=== PATIENT | female | born 1975 | race Caucasian/White ===

== ENCOUNTER → 2017-03-11 | Outpatient (CLI) | payer BC, OTHER ==
[~2017-03-11] MED LIST: CIPR500T78 PO; DULA1.5P SQ; FOLI0.8T PO; HYDR1TAB8 OP; METFOR850T PO; MULT-633 PO; PRAV10TA PO; SERT25TA PO; TAMS0.4C9 PO
--- NOTE | 2017-03-11 09:24 | Diagnostic Imaging Report ---
INDICATION: Routine screening. No prior mammograms are available for comparison. This is a baseline study. The current study was also evaluated with a Computer Aided Detection (CAD) system. Both breast show marked parenchymal heterogeneity and increased density, limiting the sensitivity of mammography. No dominant mass or malignant appearing microcalcifications are seen. Axillae are unremarkable. IMPRESSION: BI-RADS category one No mammographic features suspicious for malignancy are identified. ACR BI-RADS Category 1: Negative. Result letter will be mailed to the patient. Note: At least 10% of breast cancer is not imaged by mammography. Dictated by: Dictated on workstation # [id number]
== END ==
LOC: RAD 07:39
PROVIDERS: ATTEND Obstetrics & Gynecology
DX: Z12.31 Encounter for screening mammogram for malignant neoplasm of breast (principal)
CPT/HCPCS: 77067

== ENCOUNTER → 2020-06-06 | Outpatient (CLI) | payer BC, OTHER ==
--- NOTE | 2020-06-06 14:54 | Diagnostic Imaging Report ---
INDICATION: Routine screening. Comparison is made with prior mammogram from 03/11/2017. 2-D and 3-D bilateral screening mammography was performed with CAD. Both breasts remain heterogeneously dense, limiting the sensitivity of mammography. The parenchymal pattern is stable. No mass or malignant appearing microcalcifications are seen. Axillae are unremarkable. IMPRESSION: BI-RADS Category 1 No mammographic features suspicious for malignancy are identified. ACR BI-RADS Category 1: Negative. Result letter will be mailed to the patient. Note: At least 10% of breast cancer is not imaged by mammography. Dictated by: Dictated on workstation # [id number]
== END ==
LOC: RAD 12:45
PROVIDERS: ATTEND Nurse Practitioner Family
DX: Z12.31 Encounter for screening mammogram for malignant neoplasm of breast (principal)
CPT/HCPCS: 77063; 77067

== ENCOUNTER 2020-06-20 08:11 | Emergency (ER) | payer BC ==
[~2020-06-20] VITALS: Ht 162 cm; Wt 63.0 kg
--- NOTE | 2020-06-20 08:33 | ED Cardiac General ---
History of Present Illness General Stated Complaint: RAPID HR Source: patient, spouse Exam Limitations: no limitations History of Present Illness Date Seen by Provider: June 20, 2020 Time Seen by Provider: 08:10 Initial Comments The patient presents to the ER by private conveyance with her spouse and chief complaint that she has been feeling weak tired at times more short of breath with exertion than usual for the past couple days and this morning she says she felt weak like she was going to pass out in the shower but did not. She says her Fitbit told her she did 80 minutes of exercise yesterday and she says all she was doing was sitting at her desk. She checked and her heart rate has been running in the 1 20-1 40 range. It was about 120 when she was at work this morning so her boss insisted she get checked out. She follows with Dr. Diane for primary care in [place]. She does not have a history of dysrhythmias or heart problems. She is not having any chest pain or nausea. No sweats, fever, cough, shortness of air, diarrhea. She does have occasional constipation. She is not on any supplements, diet pills or other medicines however she did start Jardiance the beginning of April and has lost several pounds with it. She has a history of type 2 diabetes not on insulin. She denies smoking or tobacco products. She has an occasional jerrica. She denies recreational drugs. She denies being dehydrated recently for any reason. Allergies and Home Medications Allergies Coded Allergies: Cephalexin Monohydrate (Unverified Allergy, Intermediate, SOA, SEVERE RASH, 09/26/10) rofecoxib (Unverified Allergy, Mild, RASH, 09/26/10) Uncoded Allergies: IV CONTRAST (Allergy, Intermediate, RASH, 09/26/10) Patient Home Medication List Home Medication List Reviewed: Yes Review of Systems Review of Systems Constitutional: No chills, No diaphoresis EENTM: No Blurred Vision, No Double Vision Respiratory: Denies Cough, Denies Orthopnea Cardiovascular: Denies Chest Pain, Denies Edema Gastrointestinal: Denies Abdomen Distended, Denies Abdominal Pain Genitourinary: Denies Burning, Denies Discharge, Denies Drainage Musculoskeletal: No back pain, No joint pain Psychiatric/Neurological: Denies Anxiety, Denies Depressed All Other Systems Reviewed Negative Unless Noted: Yes Past Cmpuekg-Lvdeqn-Frjaxo Hx Patient Social History Alcohol Use: Occasionally Uses Drug of Choice: Denies Smoking Status: Never a Smoker Past Medical History High Cholesterol Reproductive Disorders: No Diabetes, Non-Insulin dep Physical Exam Vital Signs Vital Signs - First Documented 06/20/20 08:11 Temp 37.0 Pulse 112 Resp 15 B/P (MAP) 118/84 (95) Pulse Ox 97 Capillary Refill : Height, Weight, BMI Height: 5'8" Weight: 140lbs. oz. [id number]; BMI Method:Stated General Appearance: No Apparent Distress, WD/WN HEENT: PERRL/EOMI, Pharynx Normal, Moist Mucous Membranes Neck: Full Range of Motion, Normal Inspection, Non Tender, Supple; No Thyromegaly Respiratory: Lungs Clear, Normal Breath Sounds, No Accessory Muscle Use, No Respiratory Distress Cardiovascular: Regular Rate, Rhythm, No Edema, Normal Peripheral Pulses Gastrointestinal: Normal Bowel Sounds, No Organomegaly Extremity: Normal Capillary Refill, Normal Inspection, No Pedal Edema Neurologic/Psychiatric: Alert, Oriented x3, No Motor/Sensory Deficits, Normal Mood/Affect Skin: Normal Color, Warm/Dry Progress/Results/Core Measures Results/Orders Lab Results Laboratory Tests Test 06/20/20 08:25 06/20/20 08:51 Range/Units White Blood Count 8.1 4.3-11.0 10^3/uL Red Blood Count 4.82 3.80-5.11 10^6/uL Hemoglobin 13.7 11.5-16.0 g/dL Hematocrit 43 35-52 % Mean Corpuscular Volume 89 80-99 fL Mean Corpuscular Hemoglobin 28 25-34 pg Mean Corpuscular Hemoglobin Concent 32 32-36 g/dL Red Cell Distribution Width 12.8 10.0-14.5 % Platelet Count 308 130-400 10^3/uL Mean Platelet Volume 9.2 9.0-12.2 fL Immature Granulocyte % (Auto) 0 % Neutrophils (%) (Auto) 65 42-75 % Lymphocytes (%) (Auto) 22 12-44 % Monocytes (%) (Auto) 11 0-12 % Eosinophils (%) (Auto) 1 0-10 % Basophils (%) (Auto) 0 0-10 % Neutrophils # (Auto) 5.3 1.8-7.8 10^3/uL Lymphocytes # (Auto) 1.8 1.0-4.0 10^3/uL Monocytes # (Auto) 0.9 0.0-1.0 10^3/uL Eosinophils # (Auto) 0.1 0.0-0.3 10^3/uL Basophils # (Auto) 0.0 0.0-0.1 10^3/uL Immature Granulocyte # (Auto) 0.0 0.0-0.1 10^3/uL D-Dimer < 0.27 0.00-0.49 UG/ML Sodium Level 139 135-145 MMOL/L Potassium Level 4.0 3.6-5.0 MMOL/L Chloride Level 108 H 98-107 MMOL/L Carbon Dioxide Level 17 L 21-32 MMOL/L Anion Gap 14 5-14 MMOL/L Blood Urea Nitrogen 16 7-18 MG/DL Creatinine 0.69 0.60-1.30 MG/DL Estimat Glomerular Filtration Rate > 60 BUN/Creatinine Ratio 23 Glucose Level 99 70-105 MG/DL Calcium Level 9.6 8.5-10.1 MG/DL Corrected Calcium 8.5-10.1 MG/DL Total Bilirubin 0.6 0.1-1.0 MG/DL Aspartate Amino Transf (AST/SGOT) 50 H 5-34 U/L Alanine Aminotransferase (ALT/SGPT) 74 H 0-55 U/L Alkaline Phosphatase 125 40-136 U/L Troponin I < 0.028 <0.028 NG/ML B-Type Natriuretic Peptide 19.8 <100.0 PG/ML Total Protein 8.0 6.4-8.2 GM/DL Albumin 4.6 H 3.2-4.5 GM/DL Thyroid Stimulating Hormone (TSH) 0.03 L 0.35-4.94 UIU/ML Urine Color YELLOW Urine Clarity CLEAR Urine pH 5.5 5-9 Urine Specific [place] 1.025 H 1.016-1.022 Urine Protein NEGATIVE NEGATIVE Urine Glucose (UA) 3+ H NEGATIVE Urine Ketones 3+ H NEGATIVE Urine Nitrite NEGATIVE NEGATIVE Urine Bilirubin NEGATIVE NEGATIVE Urine Urobilinogen 0.2 < = 1.0 MG/DL Urine Leukocyte Esterase NEGATIVE NEGATIVE Urine RBC (Auto) 2+ H NEGATIVE Urine RBC 5-10 H /HPF Urine WBC RARE /HPF Urine Squamous Epithelial Cells 2-5 /HPF Urine Crystals NONE /LPF Urine Bacteria TRACE /HPF Urine Casts NONE /LPF Urine Mucus NEGATIVE /LPF Urine Culture Indicated NO Urine Opiates Screen NEGATIVE NEGATIVE Urine Oxycodone Screen NEGATIVE NEGATIVE Urine Methadone Screen NEGATIVE NEGATIVE Urine Propoxyphene Screen NEGATIVE NEGATIVE Urine Barbiturates Screen NEGATIVE NEGATIVE Ur Tricyclic Antidepressants Screen NEGATIVE NEGATIVE Urine Phencyclidine Screen NEGATIVE NEGATIVE Urine Amphetamines Screen NEGATIVE NEGATIVE Urine Methamphetamines Screen NEGATIVE NEGATIVE Urine Benzodiazepines Screen NEGATIVE NEGATIVE Urine Cocaine Screen NEGATIVE NEGATIVE Urine Cannabinoids Screen NEGATIVE NEGATIVE My Orders Orders - REINALDO SAHNI Urine Bedside (06/20/20 08:14) Ekg Tracing (06/20/20 08:14) Continuous Ekg Monitoring (06/20/20 08:14) Cbc With Automated Diff (06/20/20 08:25) Comprehensive Metabolic Panel (06/20/20 08:25) Ua Culture If Indicated (06/20/20 08:25) Urine Bedside (06/20/20 08:25) Fibrin Degradation Products (06/20/20 08:25) Drug Screen Stat (Urine) (06/20/20 08:25) Troponin I (06/20/20 08:25) Thyroid Stimulating Hormone (06/20/20 08:25) Aspirin Chewable Tablet (Baby Aspirin Ch (06/20/20 08:45) BNP (06/20/20 08:33) Orthostatic Vital Signs (Adult (06/20/20 08:33) Chest 1 View, Ap/Pa Only (06/20/20 08:33) Lactated Ringers (Lr 1000 Ml Iv Solution (06/20/20 08:45) Free T4 (Free Thyroxine) (06/20/20 10:33) Medications Given in ED Current Medications Medications Dose Ordered Sig/Shivani Route Start Time Stop Time Status Last Admin Dose Admin Aspirin 324 mg ONCE ONCE PO 06/20/20 08:45 06/20/20 08:46 DC 06/20/20 09:05 324 MG Lactated Ringer's 1,000 ml @ 0 mls/hr Q0M ONCE IV 06/20/20 08:45 06/20/20 08:46 DC 06/20/20 09:05 1,000 MLS/HR Vital Signs/I&O 06/20/20 06/20/20 08:11 08:46 Temp 37.0 Pulse 112 102 111 121 Resp 15 B/P (MAP) 118/84 (95) 124/80 (95) 120/83 (95) 120/87 (98) Pulse Ox 97 Progress Progress Note #1: Time: 08:31 Progress Note Her near syncopal episode in the shower is likely due to her tachycardia which is sinus on the monitor. We will leave her on the monitor get an EKG get some labs including a D-dimer to look for an occult blood clot. She is intact so we will check a bedside test, urine, urine drug screen, differential also includes dehydration so give her a liter of fluids, check her TSH although she does not appear to be in thyrotoxicosis storm, will check a troponin and BNP for possible atypical angina and her near syncopal work-up. We will give her some aspirin 324 preventative. Progress Note #2: Time: 10:36 Progress Note Citizen [place] syncope score risk score -1 points based on her symptoms seem to worsen for near syncope when she was in the shower. Low risk; 1.2% risk of 30-day serious adverse event. She has had no further events on telemetry. She does have a significantly suppressed TSH so were getting her free T4. T3 is a send out and she can follow-up in the clinic for this. No further imaging is likely necessary at this time. She does not have significant thyromegaly or nodules on our exam. Initial ECG Impression Date: June 20, 2020 Initial ECG Impression Time: 08:15 Initial ECG Rate: 109 Initial ECG Rhythm: S.Tach Initial ECG Intervals: Normal Initial ECG Impression: Normal Comment Normal sinus tachycardia without clinically relevant ST changes. Diagnostic Imaging Diagonstic Imaging: Xray Plain Films/CT/US/NM/MRI: chest Comments [facility], [facility]. [place], [place] NAME: [facility] REC#: [id number] PT STATUS: REG ER : 1975 PHYSICIAN: REINALDO SAHNI MD ADMIT DATE: 06/20/20/ER Draft Date of Exam:06/20/20 CHEST 1 VIEW, AP/PA ONLY INDICATION: Sinus tachycardia. Several day history of headache.. TECHNIQUE: Single view chest 9:29 AM. CORRELATION STUDY: None FINDINGS: The heart size, mediastinal configuration and pulmonary vascularity are within normal limits. The lungs are clear with no consolidating infiltrate. There is no significant effusion or pneumothorax. IMPRESSION: 1. Negative for acute abnormality of the chest. Dictated on workstation # [id number] Dict: 06/20/20935 Trans: 06/20/20936 [id number] Interpreted by: SUSANNA MERAZ DO Electronically signed by: Reviewed: Reviewed by Me Departure Impression Primary Impression: Hypothyroidism (acquired) Additional Impression: Sinus tachycardia by electrocardiogram Disposition: HOME, SELF-CARE Condition: Stable Departure-Patient Inst. Decision time for Depature: 10:45 Referrals: BRYANNA DIANE MD (PCP/Family) Primary Care Physician Patient Instructions: Hyperthyroidism (Overactive Thyroid) (DC) Add. Discharge Instructions: Call your doctor make follow-up appointment for further evaluation outpatient of your hyperthyroid. Return to the ER if you are passing out, having chest pain, worsening shortness of breath or other worrisome symptoms. REINALDO SAHNI June 20, 2020 08:33
[2020-06-20 08:41] LABS: BASOPHILS % (AUTO) 0 % (0-10); EOSINOPHILS # (AUTO) 0.1 10^3/uL (0.0-0.3); EOSINOPHILS % (AUTO) 1 % (0-10); HEMATOCRIT 43 % (35-52); HEMOGLOBIN 13.7 g/dL (11.5-16.0); LYMPHOCYTES # (AUTO) 1.8 10^3/uL (1.0-4.0); LYMPHOCYTES % (AUTO) 22 % (12-44); MEAN CORPUSCULAR HEMOGLOBIN 28 pg (25-34); MEAN CORPUSCULAR HGB CONC 32 g/dL (32-36); MEAN CORPUSCULAR VOLUME 89 fL (80-99); MEAN PLATELET VOLUME 9.2 fL (9.0-12.2); MONOCYTES # (AUTO) 0.9 10^3/uL (0.0-1.0); MONOCYTES % (AUTO) 11 % (0-12); NEUTROPHILS # (AUTO) 5.3 10^3/uL (1.8-7.8); NEUTROPHILS % (AUTO) 65 % (42-75); PLATELET COUNT 308 10^3/uL (130-400); WHITE BLOOD COUNT 8.1 10^3/uL (4.3-11.0)
[2020-06-20] MEDS ORDERED: ASPIRIN 81 MG CHEW (CHILDREN'S ASA) PO ONE (08:45)
[2020-06-20] MEDS ORDERED: LACTATED RINGERS 1,000 ML IV ONE (08:45)
[2020-06-20 08:46] VITALS: BP_SYST 120; BP_SYST 124; BP_DIAS 80; BP_DIAS 83; BP_DIAS 87
[2020-06-20 08:50] LABS: ALBUMIN 4.6 GM/DL (3.2-4.5); CHLORIDE 108 MMOL/L (98-107); SODIUM 139 MMOL/L (135-145)
[2020-06-20 08:51] LABS: CALCIUM 9.6 MG/DL (8.5-10.1)
[2020-06-20 08:52] LABS: GLUCOSE 99 MG/DL (70-105)
[2020-06-20 08:54] LABS: BILIRUBIN,TOTAL 0.6 MG/DL (0.1-1.0); CARBON DIOXIDE 17 MMOL/L (21-32)
[2020-06-20 08:56] LABS: ALKALINE PHOSPHATASE 125 U/L (40-136); CREATININE SERUM 0.69 MG/DL (0.60-1.30); GFR ESTIMATED > 60
[2020-06-20 08:57] LABS: BUN/CREATININE RATIO 23
[2020-06-20 08:58] LABS: BILIRUBIN,URINE NEGATIVE (NEGATIVE); CLARITY,URINE CLEAR; COLOR,URINE YELLOW; GLUCOSE, URINE (UA) 3+ (NEGATIVE); KETONES,URINE 3+ (NEGATIVE); LEUKOCYTE ESTERASE ,URINE NEGATIVE (NEGATIVE); NITRITE,URINE NEGATIVE (NEGATIVE); PH,URINE 5.5 (5-9); PROTEIN,URINE NEGATIVE (NEGATIVE)
[2020-06-20 08:59] LABS: ALANINE AMINOTRANSFERASE 74 U/L (0-55)
[2020-06-20 09:07] LABS: BACTERIA,URINE TRACE /HPF; WBC,URINE RARE /HPF
[2020-06-20 09:15] LABS: AMPHETAMINE SCREEN, URINE NEGATIVE (NEGATIVE); BARBITURATE SCREEN URINE NEGATIVE (NEGATIVE); BENZODIAZEPINES SCREEN URINE NEGATIVE (NEGATIVE); CANNABINOID SCREEN, URINE NEGATIVE (NEGATIVE); COCAINE SCREEN URINE NEGATIVE (NEGATIVE); METHADONE STAT NEGATIVE (NEGATIVE); METHAMPHETAMINE SCREEN URINE S NEGATIVE (NEGATIVE); OPIATE SCREEN URINE NEGATIVE (NEGATIVE); OXYCODONE STAT NEGATIVE (NEGATIVE); PROPOXYPHENE STAT NEGATIVE (NEGATIVE); TRICYCLIC ANTIDEPRESSANTS SCRE NEGATIVE (NEGATIVE)
--- NOTE | 2020-06-20 09:37 | Diagnostic Imaging Report ---
INDICATION: Sinus tachycardia. Several day history of headache.. TECHNIQUE: Single view chest 9:29 AM. CORRELATION STUDY: None FINDINGS: The heart size, mediastinal configuration and pulmonary vascularity are within normal limits. The lungs are clear with no consolidating infiltrate. There is no significant effusion or pneumothorax. IMPRESSION: 1. Negative for acute abnormality of the chest. Dictated by: Dictated on workstation # [id number]
[2020-06-20 10:57] VITALS: BP 121/69
== END 2020-06-20 11:06 | disposition home or self-care (01) ==
LOC: EDUNIT# 08:11 → ER 08:14
DX: E03.9 Hypothyroidism, unspecified (principal); R00.0 Tachycardia, unspecified; E11.9 Type 2 diabetes mellitus without complications; Z88.1 Allergy status to other antibiotic agents; Z91.041 Radiographic dye allergy status; Z88.8 Allergy status to other drugs, medicaments and biological substances; Z79.890 Hormone replacement therapy
CPT/HCPCS: 36415; 71045; 80053; 80306; 81000; 83880; 84439; 84443; 84484; 84703; 85025; 85379; 93005

== ENCOUNTER → 2021-11-26 | Outpatient (CLI) | payer BC ==
--- NOTE | 2021-11-26 19:09 | Diagnostic Imaging Report ---
INDICATION: Routine screening. COMPARISON is made with prior mammograms 06/06/2020 and 03/11/2017. 2-D and 3-D bilateral screening mammography was performed with CAD. Both breasts are heterogeneously dense, limiting the sensitivity of mammography. The parenchymal pattern is stable. No mass or malignant-appearing microcalcifications are seen. Axillae are unremarkable. IMPRESSION: BI-RADS Category 1 No mammographic features suspicious for malignancy are identified. ACR BI-RADS Category 1: Negative. Result letter will be mailed to the patient. Note: At least 10% of breast cancer is not imaged by mammography. Dictated by: Dictated on workstation # [id number]
== END ==
LOC: RAD 13:57
PROVIDERS: ATTEND Internal Medicine
DX: Z12.31 Encounter for screening mammogram for malignant neoplasm of breast (principal)
CPT/HCPCS: 77063; 77067